=== PATIENT | male | born 1960 | race Caucasian/White ===

== ENCOUNTER 2017-02-25 14:22 | Outpatient (CLI) | payer OTHER | END 2017-02-25 14:23 | LOC: POD 14:22 | PROVIDERS: ATTEND Podiatrist | DX: M19.90 Unspecified osteoarthritis, unspecified site (principal); B35.1 Tinea unguium; M79.674 Pain in right toe(s); M79.675 Pain in left toe(s) | CPT/HCPCS: 11721; 99213 ==